=== PATIENT | female | born 1950 | race Caucasian/White ===

== ENCOUNTER 2019-07-03 12:31 | Day surgery (SDC) | payer OTHER ==
[~2019-07-03] VITALS: Ht 165.1 cm; Wt 159.1 kg
[~2019-07-03 12:31] MED LIST: (None)15 G1 EXT; ACET250 PO; ACET325 PO; ALBU3IS INH; ALBU90OI61 INH; ALLO300 PO; AMOX500 PO; ASCO500 PO; ASPI81CH PO; ASPI81EC PO; ATENOLOL PO; ATOR20 PO; Artificial Tea1 EACH BOTHEYES; Aspirin EC81 MG PO; Ativan1 MG PO; BISA10S PR; Bactrim Ds Tab1 EACH PO; CARI350 PO; CEPH500 PO; CHOL10002 PO; CLIN150 PO; CLON.5 PO; CVS DISPOSABLE399 ML PR; Cleocin HCl150 MG PO; DIAZ5 PO; DIVA500EC PO; DIVA500ER PO; DOC250 PO; DOCU100 PO; Esgic Tablet1 EACH PO; FERR325 PO; FLUC200 PO; FURO40 PO; FURO80; GABA300 PO; GABA600 PO; GAVILAX17 GM PO; HYDMETSO BOTHEYES; HYOS.125 SL; IBUP800 PO; INSU100I6 SC; Keppra1000 MG PO; LAVAP17G PO; LEVE500 PO; LEVFLO500 PO; LEVOTHROID PO; LEVOTHYROXINE PO; LEVSOD100 PO; LEVSOD25 PO; LEVSOD75 PO; LIDO5TP TOP; LIDO700A20 TOP; LIOT25 PO; LISI5; LISI5 PO; Lisinopril2.5 MG PO; METF500 PO; METF500C PO; METH10 PO; METH40 PO; MULVITMIND PO; NITR.4SL SL; NITR.6SL SL; NORCO 7.5/325 PO; NYST100P TOP; Neurontin600 MG PO; Norco 10-325 T1 EACH PO; OMEP20ER PO; ONDA4SO PO; OXYACE5T PO; OXYB5 PO; OXYB5ER PO; OXYC10ER PO; OXYC15ER; OXYC15ER PO; OXYC5 PO; Omeprazole20 M1 PO; PANT40 PO; POLY17UD PO; POTA10T PO; POTCHL10ER PO; POTCHL20ER PO; PROM25 PO; SACC250C PO; SIMV10 PO; SIMV40 PO; SPIR25 PO; SULTRIDS PO; Synthroid300 MCG PO; TETR.05OPS LEFTEYE; THYR60 PO; Vitamin B Comple1 EA PO; ZINC220 PO; [UNRECOGNIZED DRUG - OTHER] LEFTEYE
== END 2019-07-03 22:37 | disposition home or self-care (01) ==
LOC: MHTC 12:31
DX: I87.2 Venous insufficiency (chronic) (peripheral) (principal); Z88.0 Allergy status to penicillin; Z88.8 Allergy status to other drugs, medicaments and biological substances
CPT/HCPCS: 36475; 99152; 99153; C1769; C1888; C1894; J1644; J2250; J3010; J7040

== ENCOUNTER 2019-07-12 09:04 | Day surgery (SDC) | payer OTHER ==
[~2019-07-12] VITALS: Ht 170.2 cm; Wt 148.0 kg
--- NOTE | 2019-07-12 11:31 | NUR ---
RF CYCLES COMPLETED AT 120 DEGREES; 13 KAT - TOTAL TREATMENT TIME 2:00; 6 RF CYCLES.
--- NOTE | 2019-07-12 11:53 | NUR ---
PT TOLERATED VENOUS ABLATION/SCLEROTHERAPY WELL. RIGHT LEG WRAPPED WITH GAUZE, COBAN AND KNEE-HIGH 20-30 COMPRESSION STOCKINGS.
--- NOTE | 2019-07-12 12:14 | NUR ---
DISCHARGE INSTRUCTIONS REVIEWED ALL QUESTIONS ANSWERED. 22 G IV DISCONTINUED FROM RIGHT AC WITH INTACT CANNULA.
--- NOTE | 2019-07-12 12:32 | NUR ---
PT ESCORTED OUT VIA WHEELCHAIR.
== END 2019-07-12 23:24 | disposition home or self-care (01) ==
LOC: MHTC 09:04
DX: I87.2 Venous insufficiency (chronic) (peripheral) (principal); I83.91 Asymptomatic varicose veins of right lower extremity
CPT/HCPCS: 36465; 36475; C1888; C1894; J1644; J2250; J3010; J7030; J7040

== ENCOUNTER 2019-12-11 00:15 | Day surgery (SDC) | payer OTHER | END 2019-12-11 14:35 | disposition home or self-care (01) | LOC: ATC 00:15 | DX: N39.0 Urinary tract infection, site not specified (principal); I12.9 Hypertensive chronic kidney disease with stage 1 through stage 4 chronic kidney disease, or unspecified chronic kidney disease; E11.22 Type 2 diabetes mellitus with diabetic chronic kidney disease; N18.2 Chronic kidney disease, stage 2 (mild); D63.1 Anemia in chronic kidney disease; E11.21 Type 2 diabetes mellitus with diabetic nephropathy; Z79.899 Other long term (current) drug therapy; Z79.84 Long term (current) use of oral hypoglycemic drugs; Z79.82 Long term (current) use of aspirin; Z88.0 Allergy status to penicillin | CPT/HCPCS: 96365; J3370 ==

== ENCOUNTER 2021-11-09 12:56 | Day surgery (SDC) | payer OTHER ==
[~2021-11-09] VITALS: Ht 172.7 cm; Wt 170.0 kg
[~2021-11-09 12:56] MED LIST changes: -GAVILAX17 GM PO; -Keppra1000 MG PO; +POLYETHYLENE G500 G1 PO
--- NOTE | 2021-11-09 17:15 | NUR ---
[facility] A&O. comfortable in bed. left foot withdressing D&I. no hematoma, no bleeding
--- NOTE | 2021-11-09 18:42 | NUR ---
PATIENT DESSING WITH ASSISTANCE FROM FAMILY
--- NOTE | 2021-11-09 19:08 | NUR ---
PATIENT AND FAMILY VERBALIZED UNDERSTANDING OF DISCHARGE INSTRUCTIONS AND PRECAUTIONS. IV SITE DCED WITH CATHETER IN TACT. UGARTE CATHETER REMOVED WITH 200 CC OF DARK YELLOW URINE IN BAG. LEFT PEDAL SITE DRESSING D&I. NO HEMATOMA, NO BLEEDING. PATIENT TRANSFERRED TO [facility] WITH ASSIST FROM FAMILY AND BELLA RT. NO FURTHER QUESTIONS. PATIENT TRANSFERRED VIA HER WHEEL CHAIR TO WAITING VAN. CPAP TAKEN BY PATIENT.
== END 2021-11-09 19:08 | disposition home or self-care (01) ==
LOC: MHTC 12:56
DX: E11.51 Type 2 diabetes mellitus with diabetic peripheral angiopathy without gangrene (principal); I70.212 Atherosclerosis of native arteries of extremities with intermittent claudication, left leg; E11.42 Type 2 diabetes mellitus with diabetic polyneuropathy; E78.5 Hyperlipidemia, unspecified; E03.9 Hypothyroidism, unspecified; K21.9 Gastro-esophageal reflux disease without esophagitis; Z88.0 Allergy status to penicillin
CPT/HCPCS: 76937; 99152; 99153; C1769; C1887; C1894; J1644; J2250; J3010; J7030; J7050; Q9967

== ENCOUNTER 2022-12-18 02:33 | Emergency (ER) | payer OTHER ==
[~2022-12-18] VITALS: Ht 170.2 cm; Wt 136.1 kg
== END 2022-12-18 04:52 | disposition home or self-care (01) ==
LOC: ER 02:33
DX: T25.222A Burn of second degree of left foot, initial encounter (principal); T31.0 Burns involving less than 10% of body surface; X12.XXXA Contact with other hot fluids, initial encounter; E11.9 Type 2 diabetes mellitus without complications; I10 Essential (primary) hypertension; J45.909 Unspecified asthma, uncomplicated; E66.9 Obesity, unspecified; Z23 Encounter for immunization; Z88.0 Allergy status to penicillin; Z88.2 Allergy status to sulfonamides; Z88.8 Allergy status to other drugs, medicaments and biological substances; Z79.899 Other long term (current) drug therapy; Z79.82 Long term (current) use of aspirin; Z79.84 Long term (current) use of oral hypoglycemic drugs
CPT/HCPCS: 90714; A9270; J1170; J1885

== ENCOUNTER → 2022-12-20 | Outpatient (CLI) | payer OTHER ==
[2022-12-20 18:55] LABS: U Amphetamine Screen Not Detected; U Barbituate Screen Not Detected; U Benzodiazapine Screen Not Detected; U Buprenorphine Screen Not Detected; U Cannabinoids Screen Not Detected; U Cocaine Screen Not Detected; U Methadone Screen DETECTED; U Methamphetamine Screen Not Detected; U Opiates Screen DETECTED; U Oxycodone Screen Not Detected; U Phencyclidine Screen Not Detected; U Propoxyphene Screen Not Detected
== END | disposition home or self-care (01) ==
LOC: LAB SHORT 16:37 → LAB 16:37
PROVIDERS: Internal Medicine Hematology & Oncology
DX: Z51.81 Encounter for therapeutic drug level monitoring (principal); Z79.899 Other long term (current) drug therapy

== ENCOUNTER → 2022-12-29 | Outpatient (CLI) | payer OTHER ==
[2022-12-29 15:30] LABS: Source, Urine Clean Catch
[2022-12-29 17:26] LABS: Appearance, Urine Cloudy (Clear); Bilirubin, Urine Neg (Neg); Blood, Urine Neg (Neg); Color, Urine Yellow (P-Yellow); Glucose Qualitative, Urine Neg (Neg); Ketones, Urine Neg (Neg); Leukocyte Esterase, Urine 1+ (Neg); Nitrite, Urine Neg (Neg); Protein, Urine 1+ (Neg); Urobilinogen, Urine NORM (Normal)
[2022-12-29 18:06] LABS: Bacteria Many /hpf; Calcium Oxalate Crystals Mod /hpf; Squamous Epithelial Cells Few /hpf (Few); Uric Acid Crystals Many /hpf
[2022-12-29 18:07] LABS: Hyaline Casts 0-2 /lpf (0-2)
== END | disposition home or self-care (01) ==
LOC: LAB SHORT 15:29 → LAB 15:29
PROVIDERS: Internal Medicine Hematology & Oncology
DX: N39.0 Urinary tract infection, site not specified (principal)
CPT/HCPCS: 81001; 87086

== ENCOUNTER → 2023-09-23 | Outpatient (CLI) | payer OTHER ==
[2023-09-23 18:57] LABS: Creatinine Urine 62.2 mg/dL (27.00-270.00); Microalbumin, Urine Quant. 9.71 mg/L (0.000-20.000); Protein, Urine Quantitative 10.4 mg/dL (0.0-11.9)
== END | disposition home or self-care (01) ==
LOC: LAB SHORT 10:00 → LAB 10:00 → LAB FUT 05-19 16:50
PROVIDERS: Internal Medicine Nephrology
DX: E11.40 Type 2 diabetes mellitus with diabetic neuropathy, unspecified (principal); E03.9 Hypothyroidism, unspecified; N30.00 Acute cystitis without hematuria; E11.22 Type 2 diabetes mellitus with diabetic chronic kidney disease; N18.30 Chronic kidney disease, stage 3 unspecified; D63.1 Anemia in chronic kidney disease; N25.81 Secondary hyperparathyroidism of renal origin; E55.9 Vitamin D deficiency, unspecified; E78.00 Pure hypercholesterolemia, unspecified; R76.9 Abnormal immunological finding in serum, unspecified; R94.6 Abnormal results of thyroid function studies
CPT/HCPCS: 81050; 82043; 82570; 84156

== ENCOUNTER 2024-04-03 12:19 | Day surgery (SDC) | payer OTHER ==
[~2024-04-03] VITALS: Ht 172.7 cm; Wt 150.0 kg
[~2024-04-03 12:19] MED LIST changes: +Balanced Salt Epinephrine Irrigation Solution 500 mL IR SCH; +Lidocaine HCl/Pf 1% 5 ML VIAL XX SCH; +Moxifloxacin HCL 0.5 MG/0.1 ML 0.4MLSYR RIGHTEYE SCH; +NS 500 ML IV ONE; +PHENYLEPHRINE\\TROPICAMIDE\\TETRACAINE OPHTHALMIC DILATING SOLN RIGHTEYE PRN; +Povidone-Iodine 450 DROP/30 ML Solution RIGHTEYE SCH
[2024-04-03] MEDS ORDERED: FentaNYL Citrate 50 MCG/ML 2 ML Injection ONE (12:35)
[2024-04-03] MEDS ORDERED: Midazolam HCl 1MG / ML 2ML Vial ONE (12:35)
[2024-04-03] MEDS ORDERED: TAMS.4ER (12:50)
[2024-04-03] MEDS ORDERED: ROPI.25 (12:50)
[2024-04-03] MEDS ORDERED: PANT20 (12:51)
[2024-04-03] MEDS ORDERED: NS 1,000 ML IV ONE (13:29)
--- NOTE | 2024-04-03 13:51 | NUR ---
04/03/24 1351 Kate Sheets ON EYE BED, RAILS UP. PILLOW UNDER KNEES. TOWEL ROLL PLACED UNDER RIGHT ELBOW.
[2024-04-03 14:16] VITALS: BP 126/66
== END 2024-04-03 14:40 | disposition home or self-care (01) ==
LOC: ORSCSDS 12:19
PROVIDERS: Student in an Organized Health Care Education/Training Program
PROC: 08RJ3JZ Replacement of Right Lens with Synthetic Substitute, Percutaneous Approach (ICD-10-PCS; principal; 2024-04-03 13:45)
DX: E11.36 Type 2 diabetes mellitus with diabetic cataract (principal); H25.813 Combined forms of age-related cataract, bilateral; E11.42 Type 2 diabetes mellitus with diabetic polyneuropathy; I10 Essential (primary) hypertension; Z86.718 Personal history of other venous thrombosis and embolism; E78.5 Hyperlipidemia, unspecified; E03.9 Hypothyroidism, unspecified; J45.909 Unspecified asthma, uncomplicated; M32.9 Systemic lupus erythematosus, unspecified; G40.909 Epilepsy, unspecified, not intractable, without status epilepticus; G47.33 Obstructive sleep apnea (adult) (pediatric); E66.01 Morbid (severe) obesity due to excess calories; Z68.43 Body mass index [BMI] 50.0-59.9, adult; Z99.3 Dependence on wheelchair; Z79.84 Long term (current) use of oral hypoglycemic drugs; Z79.899 Other long term (current) drug therapy
CPT/HCPCS: 82947; J2250; J3010; J7040; V2632

== ENCOUNTER 2024-04-17 12:26 | Day surgery (SDC) | payer OTHER ==
[~2024-04-17] VITALS: Ht 170.2 cm; Wt 150.0 kg
[~2024-04-17 12:26] MED LIST changes: +Moxifloxacin HCL 0.5 MG/0.1 ML 0.4MLSYR LEFTEYE SCH; -Moxifloxacin HCL 0.5 MG/0.1 ML 0.4MLSYR RIGHTEYE SCH; +PANT20; +PHENYLEPHRINE\\TROPICAMIDE\\TETRACAINE OPHTHALMIC DILATING SOLN LEFTEYE PRN; -PHENYLEPHRINE\\TROPICAMIDE\\TETRACAINE OPHTHALMIC DILATING SOLN RIGHTEYE PRN; +Povidone-Iodine 450 DROP/30 ML Solution LEFTEYE SCH; -Povidone-Iodine 450 DROP/30 ML Solution RIGHTEYE SCH; +ROPI.25; +TAMS.4ER
[2024-04-17] MEDS ORDERED: Midazolam HCl 1MG / ML 2ML Vial ONE (13:28)
[2024-04-17] MEDS ORDERED: FentaNYL Citrate 50 MCG/ML 2 ML Injection ONE (13:28)
[2024-04-17] MEDS ORDERED: NS 1,000 ML IV ONE (13:33)
[2024-04-17] MEDS ORDERED: Lactated Ringer's 1,000 ML IV ONE (13:38)
[2024-04-17] MEDS ORDERED: Acetaminophen 500 MG Tab ONE (14:15)
[2024-04-17 14:47] VITALS: BP 121/52
--- NOTE | 2024-04-17 14:50 | NUR ---
04/17/24 1450 Ricardo Perry PT REPORTED 7/10 PAIN UPON D/C. SHE STATED THAT THIS IS A TOLERABLE LEVEL OF PAIN TO RETURN HOME WITH WHILE WAITING FOR TYLENOL TO TAKE EFFECT. SHE WAS INSTRUCTED TO CONTACT DR. PARKER IMMEDIATELY IF PAIN IS NOT RELIEVED BY OTC MEDICATION.
== END 2024-04-17 14:31 | disposition home or self-care (01) ==
LOC: ORSCSDS 12:26
PROVIDERS: Student in an Organized Health Care Education/Training Program
PROC: 08RK3JZ Replacement of Left Lens with Synthetic Substitute, Percutaneous Approach (ICD-10-PCS; principal; 2024-04-17 13:45)
DX: E11.36 Type 2 diabetes mellitus with diabetic cataract (principal); H25.812 Combined forms of age-related cataract, left eye; Z96.1 Presence of intraocular lens; K21.9 Gastro-esophageal reflux disease without esophagitis; G47.33 Obstructive sleep apnea (adult) (pediatric); E03.9 Hypothyroidism, unspecified; M32.9 Systemic lupus erythematosus, unspecified; I10 Essential (primary) hypertension; E78.5 Hyperlipidemia, unspecified; G40.909 Epilepsy, unspecified, not intractable, without status epilepticus; Z86.718 Personal history of other venous thrombosis and embolism; J45.909 Unspecified asthma, uncomplicated; E66.01 Morbid (severe) obesity due to excess calories; Z68.43 Body mass index [BMI] 50.0-59.9, adult; Z79.84 Long term (current) use of oral hypoglycemic drugs; Z79.899 Other long term (current) drug therapy
CPT/HCPCS: 82947; A9270; J2250; J3010; J7040; V2632

== ENCOUNTER → 2024-08-20 | Outpatient (CLI) | payer OTHER ==
[~2024-08-20] MED LIST changes: -Balanced Salt Epinephrine Irrigation Solution 500 mL IR SCH; -Lidocaine HCl/Pf 1% 5 ML VIAL XX SCH; -Moxifloxacin HCL 0.5 MG/0.1 ML 0.4MLSYR LEFTEYE SCH; -NS 500 ML IV ONE; -PHENYLEPHRINE\\TROPICAMIDE\\TETRACAINE OPHTHALMIC DILATING SOLN LEFTEYE PRN; -Povidone-Iodine 450 DROP/30 ML Solution LEFTEYE SCH
== END | disposition home or self-care (01) ==
LOC: LAB 16:37 → LAB SHORT 16:37
DX: N39.0 Urinary tract infection, site not specified (principal)
CPT/HCPCS: 87086

== ENCOUNTER → 2024-11-14 | Outpatient (CLI) | payer OTHER | LOC: LAB SHORT 15:58 → LAB 15:58 | DX: N39.0 Urinary tract infection, site not specified (principal) | CPT/HCPCS: 87077; 87086; 87186 ==

== ENCOUNTER → 2025-01-08 | Outpatient (CLI) | payer OTHER | LOC: LAB SHORT 13:28 → LAB 13:28 | DX: N39.0 Urinary tract infection, site not specified (principal) | CPT/HCPCS: 87077; 87086; 87186 ==

== ENCOUNTER 2025-03-31 18:41 | Inpatient (IN) | payer OTHER ==
[~2025-03-31] VITALS: Ht 167.6 cm; Wt 143.1 kg
[2025-03-31] MEDS ORDERED: NS 1,000 ML IV SCH ×2 (18:50→22:45)
[2025-03-31] MEDS ORDERED: NS 1,000 ML IV ONE (18:59)
[2025-03-31 19:09] LABS: BASOPHILS ABSOLUTE AUTO 0.03 K/mm3 (0.00-0.23); BASOPHILS PERCENT AUTO 0 % (0-2); EOSINOPHILS ABSOLUTE AUTO 0.04 K/mm3 (0.00-0.68); EOSINOPHILS PERCENT AUTO 0 % (0-6); Hematocrit 33.8 % (33.0-51.0); Hemoglobin 10.8 g/dL (11.5-16.0); IMMATURE GRAN ABSOLUTE AUTO 0.04 K/mm3 (0.00-0.10); IMMATURE GRAN PERCENT AUTO 0 % (0-1); LYMPHOCYTES ABSOLUTE AUTO 0.40 K/mm3 (0.84-5.20); LYMPHOCYTES PERCENT AUTO 4 % (21-46); MONOCYTES ABSOLUTE AUTO 0.47 K/mm3 (0.16-1.47); MONOCYTES PERCENT AUTO 5 % (4-13); Mean Corpuscular HGB Conc 32.0 g/dL (31.5-36.5); Mean Corpuscular Volume 95 fL (80-100); NEUTROPHILS ABSOLUTE AUTO 9.13 K/mm3 (1.96-9.15); NEUTROPHILS PERCENT AUTO 90 % (41-73); NRBC ABSOLUTE 0.00 K/mm3 (0.00-0.02); NRBC Auto 0.0 /100 WBC (0.0-0.2); Platelet Count 173 K/mm3 (150-400); RDW Coefficient Variation 14.4 % (11.7-14.2); RDW Standard Deviation 50.4 fL (35.1-46.3)
[2025-03-31 19:27] LABS: Alanine Aminotransfer (ALT/SGP 14 U/L (12-78); Albumin, Blood 2.7 g/dL (3.4-5.0); Albumin/Globulin Ratio 0.8 (0.8-1.8); Anion Gap 4 mmol/L (3-11); Aspartate Aminotrans (AST/SGOT 27 U/L (12-37); Bilirubin, Total 0.4 mg/dL (0.1-1.0); Blood Urea Nitrogen 9 mg/dL (8-24); CO2, Blood 32 mmol/L (21-32); Calcium, Blood 8.5 mg/dL (8.5-10.1); Chloride, Blood 107 mmol/L (98-108); Creatinine, Blood 0.61 mg/dL (0.40-1.00); Globulin, Blood 3.4 g/dL (2.2-4.0); Glucose, Blood 133 mg/dL (70-99); Potassium, Blood 4.0 mmol/L (3.5-5.5); Sodium, Blood 139 mmol/L (136-145); Total Protein, Blood 6.1 g/dL (6.4-8.2)
[2025-03-31 19:53] LABS: Source, Urine Straight Cath
[2025-03-31 19:56] LABS: Bilirubin, Urine Neg (Neg); Glucose Qualitative, Urine Neg (Neg); Ketones, Urine Neg (Neg); Leukocyte Esterase, Urine 1+ (Neg); Protein, Urine 1+ (Neg); Specific Gravity, Urine 1.020 (1.003-1.022); Urobilinogen, Urine NORM (Normal)
[2025-03-31 20:03] LABS: Color, Urine Pale Yellow (P-Yellow)
[2025-03-31 20:04] LABS: Red Blood Cells, Urine 0-2 /hpf (0-2)
[2025-03-31] MEDS ORDERED: CefTRIAXone Sodium 2,000 MG in NS 100 ML IV ONE (20:10)
[2025-03-31 21:54] LABS: Thyroid Stimulating Hormone <0.005 uIU/mL (0.360-4.800)
[2025-03-31] MEDS ORDERED: Ondansetron HCl 2 MG / ML 2ML Vial IV PRN (22:40)
[2025-04-01] VITALS (31 sets, daily range): BP systolic 101–148; BP diastolic 43–110
--- NOTE | 2025-04-01 02:38 | NUR ---
TRANSFER OF CARE LATE ENTRY: Pt arrived to the unit approx 0040. Norepi @ 6mcg. Pt on 3L NC. Oriented to room 12. No acute distress noted. Somnolent. Arousable but unable to stay awake to answer questions. VSS stable. Placed call light within reach of patient. at bedside able to answer some history questions but states their daughter and the patient's caregiver can answer history questions more accurately. Personal lift sheet given back to spouse to take home. Educated on visiting hours and plan of care moving forward. Patient and family had no further questions.
[2025-04-01 04:19] LABS: BASOPHILS ABSOLUTE AUTO 0.02 K/mm3 (0.00-0.23); BASOPHILS PERCENT AUTO 0 % (0-2); EOSINOPHILS ABSOLUTE AUTO 0.03 K/mm3 (0.00-0.68); EOSINOPHILS PERCENT AUTO 0 % (0-6); Hematocrit 32.7 % (33.0-51.0); Hemoglobin 10.2 g/dL (11.5-16.0); IMMATURE GRAN ABSOLUTE AUTO 0.03 K/mm3 (0.00-0.10); IMMATURE GRAN PERCENT AUTO 0 % (0-1); LYMPHOCYTES ABSOLUTE AUTO 0.68 K/mm3 (0.84-5.20); LYMPHOCYTES PERCENT AUTO 7 % (21-46); MONOCYTES ABSOLUTE AUTO 0.39 K/mm3 (0.16-1.47); MONOCYTES PERCENT AUTO 4 % (4-13); Mean Corpuscular HGB Conc 31.2 g/dL (31.5-36.5); Mean Corpuscular Volume 96 fL (80-100); NEUTROPHILS ABSOLUTE AUTO 8.15 K/mm3 (1.96-9.15); NEUTROPHILS PERCENT AUTO 88 % (41-73); NRBC ABSOLUTE 0.00 K/mm3 (0.00-0.02); NRBC Auto 0.0 /100 WBC (0.0-0.2); Platelet Count 174 K/mm3 (150-400); RDW Coefficient Variation 14.5 % (11.7-14.2); RDW Standard Deviation 51.3 fL (35.1-46.3)
[2025-04-01 04:46] LABS: Alanine Aminotransfer (ALT/SGP 13.0 U/L (12-78); Albumin, Blood 2.4 g/dL (3.4-5.0); Albumin/Globulin Ratio 0.7 (0.8-1.8); Anion Gap 4.0 mmol/L (3-11); Aspartate Aminotrans (AST/SGOT 29.0 U/L (12-37); Bilirubin, Total 0.4 mg/dL (0.1-1.0); Blood Urea Nitrogen 9.0 mg/dL (8-24); CO2, Blood 32.0 mmol/L (21-32); Calcium, Blood 8.4 mg/dL (8.5-10.1); Chloride, Blood 108.0 mmol/L (98-108); Creatinine, Blood 0.62 mg/dL (0.40-1.00); Globulin, Blood 3.4 g/dL (2.2-4.0); Glucose, Blood 102.0 mg/dL (70-99); Magnesium, Blood 1.8 mg/dL (1.6-2.4); Potassium, Blood 4.0 mmol/L (3.5-5.5); Sodium, Blood 140.0 mmol/L (136-145); Total Protein, Blood 5.8 g/dL (6.4-8.2)
[2025-04-01] MEDS ORDERED: Levothyroxine Sodium 0.15 MG Tab PO SCH (06:00)
[2025-04-01] MEDS ORDERED: Pantoprazole Sodium 40 MG Injection IV SCH (06:00)
[2025-04-01] MEDS ORDERED: Lactobacil 2-S.Thermo-Bifido 1 1 Cap PO SCH (09:00)
[2025-04-01] MEDS ORDERED: Enoxaparin 40 MG/0.4 ML SYR SC SCH (09:00)
--- NOTE | 2025-04-01 18:03 | NUR ---
SHIFT SUMMARY PT A/O X3, PMH DEMENTIA WITH IMPAIRED MEMORY RECALL. AFEBRILE TMAX 99.2. NSR, BP SOFT TO WNL. REGULAR DIET - EASY TO CHEW. BGS WNL. NO BM. PUREWICK INTACT. LINEN/GOWN CHANGED SEVERAL TIMES. PT UP TO CHAIR FOR SEVERAL HOURS - WORKED WITH PT. SKIN ASSESSMENT UPDATED - ERYTHEMATOUS, FIRM, HOT AREA TO LEFT LATERAL THIGH. DAUGHTER REPORTS PMH CELLULITIS - DR. ADDISON EVALUATED AT BEDSIDE. PIV X3. NS 125 ML/HR STOP AFTER BAG COMPLETE PER DR. ADDISON. ECHO ORDERED THIS MORNING BUT NOT YET COMPLETED.
[2025-04-01] MEDS ORDERED: CefTRIAXone Sodium 1,000 MG in NS 100 ML IV SCH (21:00)
[2025-04-01] MEDS ORDERED: Insulin Human Lispro 100 Units/ML 3ML Syringe SC SCH ×2 (21:00)
[2025-04-02] VITALS (7 sets, daily range): BP systolic 99–138; BP diastolic 47–88
--- NOTE | 2025-04-02 01:00 | NUR ---
PT AT BEDSIDE, STATED MEDICATIONS INCORRECT, METHADONE SPECIFICALLY. WENT OVER MEDS WITH PT . MD NOTIFIED OF INCORRECT MEDADONE DOSE, ORDER TO GIVE PT HOME DOSE METHADONE. MD NOTIFIED OF CONFUSION AND PT INCREASINGLY PULLING AT LINES/TUBES, ORDER TO GIVE CLONAZEPAM 1MG PO NOW. PT MAKING MULTIPLE ATTEMPTS TO REMOVE PIV'S/LINES, PT PLACED IN CAROLEE MITTS PER ORDER. GIVEN 50MG SEROQUEL AND 5MG MELATONIN PO PER ORDERS. PT CONTINUES TO TRY AND REMOVE LINES, PT THEN PLACED IN CAROLEE WRIST RESTRAINTS PER MD ORDERS. PT DOWNGRADED TO MEDICAL STATUS.
--- NOTE | 2025-04-02 01:09 | NUR ---
REPORT RECEIVED FROM PAPER INSERTER AND AWAITING PT T/F VIA BARIATRIC BED TO ROOM 359.
[2025-04-02] MEDS ORDERED: HYDROcodone 10-APAP 325 TAB PO ONE (02:45)
--- NOTE | 2025-04-02 03:16 | NUR ---
ALERTED TO INCREASED AGGITATION UPON T/F TO ROOM W/O ABILITY TO CALM, DISTRACT OR EDUCATE PT. SHE'S BEEN CONSTANTLY PULLING ON RESTRAINTS, BECAME MILDLY COMBATIVE (SWINGING AT STAFF), HAS BEEN SLIDING DOWN IN BED TO ATTEMPT TO REMOVE RESTRAINTS AND NO ATTEMPTS AT DISTRACTION OR REDIRECTION HAVE BEEN HELPFUL. PT REPORTED BACK PAIN AND X1 NORCO WAS RX'D BUT PT REFUSED TO TAKE ANY PO MEDS. UPDATED AND BENEDRYL 5OMG IV NOW RX'D. WILL ADMINISTER MED AND REEVALUATE.
[2025-04-02] MEDS ORDERED: DiphenhydrAMINE HCl 50 MG/ML 1ML Vial IV ONE (03:20)
--- NOTE | 2025-04-02 04:44 | NUR ---
SUMMARY: PT CONT'S TO BE CONFUSED, ORIENTED TO SELF ONLY AND ANXIOUS WHEN AWAKE. SOFT WRIST RESTRAINTS REMAIN INTACT FOR IMPULSIVITY, FREQ ATTEMPTS OOB BY SELF, FALL RISK, PULLING AT LINES, CONFUSION AND BECOMING MILDLY COMBATIVE WHEN STAFF ATTEMPT TO REDIRECT. SHE REFUSED PO MEDS DESPITE RN ATTEMPTING TO PROVIDE PRN NORCO FOR PT REPORT OF BACK PAIN AND SHE'S BEEN VERY RESISTANT TO REPOSITIONING. IV BENEDRYL WAS RX'D AND RECEIVED FOR CALMING AFFECT AND PT HAS BEEN SLEEPING MORE COMFORTABLY W/O S/S DISTRESS SINCE. PUREWICK IS IN PLACE FOR INCONTINENCE, BEDREST STATUS AND INABILITY TO FOLLOW INSTRUCTIONS AT PRESENT. SHE'S NSR ON TELE AT 70'S BPM AND REMAINS ON 2L O2 VIA NC. L.LATERAL THIGH REMAINS HOT/FIRM AND INTENSIVISTS BELIEVES IT TO BE CELLULITIS. IV ABX RECEIVED IN ICU PRIOR TO T/F. NO ACUTE CHANGES, VSS/AFEBRILE. WILL REPORT TO DAY RN.
--- NOTE | 2025-04-02 14:06 | NUR ---
PT HAD [address]LE[address] GUTIERREZ NOTIFIED, EKG ORDERED AND COMPLETED. DR. GUTIERREZ CALLED AND NOTIFIED OF EKG RESULTS AND WERE PLACED ON FRONT OF CHART. PT CONTINUES TO ITCH TO PLACES WITH TAPE LIKE AROUND IV, DR. GUTIERREZ NOTIFIED TO REVIEW CHART AND POSSIBLY ADD SOMETHING TO HELP.
--- NOTE | 2025-04-02 17:10 | NUR ---
SUMMARY MOVED TO LIFT ROOM 331 REPORT GIVEN TO LAWRENCE WISE GATHERED AND SENT TO NEW ROOM. PT TRANSPORTED IN HER BARIATRIC BED. DR. GUTIERREZ TO CONSULT WITH NEUROLOGY TODAY AT [facility] ABOUT POTENTIAL CHANGE TO HER SEIZURE MEDS. NO NEW CHANGES TO MED REGIMEN AT THIS TIME. NO WITNESSED SEIZURE ACTIVITY. ABEL WAS AT BEDSDIE ALL MORNING. PT WAS REMOVED FROM NON VIOLENT WRIST RESTRAINTS AT 0900. ORDER DC'D. PT STILL HAS GOOD IV ACCESS TO LEFT AC. PT COMPLAINS TO ITCHING TO SITE, WITH SOME ASSOCIATED REDNESS FROM WHERE SHE HAS BEEN SCRATCHING. LORATIDINE STARTED FOR ITCHING TODAY PER DR. IZQUIERDO. PT TOTAL CARE. 2 PERSON TO REPOSITION/CHAGNE. DOES NOT CALL APPROPRIATELY. PUREWICK IN PLACE AND NEEDED TO BE REPLACED TODAY DUE TO LEAKING.
[2025-04-03 00:33] VITALS: BP 124/57
--- NOTE | 2025-04-03 04:25 | NUR ---
SHIFT SUMMARY WHILE ASSUMING CARE OF THIS PATIENT, THIS RN NOTED THAT THE L FOOT WAS MUCH COOLER THAN THE RIGHT AND PULSE WAS ONLY PALPABLE WITH DOPPLER. THIS RN CALLED CRICKET COLIN AT APPROX 1930, WHOM STATED THAT HE WOULD COME TO THE PATIENT'S ROOM TO ASSESS THE PATIENT. DR NOVAK AT BEDSIDE AT APPROX 1950, WHOM STATED THAT HE WOULD ORDER VENOUS AND ARTERIAL ULTRASOUND. AT APPROX 2300, PATIENT AWOKE CONFUSED AND STARTED PULLING AT LINES, BREAK SHIFT RN CALLED MD AND AN ORDER FOR ONE TIME SEROQUEL WAS ORDERED. PATIENT SPOUSE AT BEDSIDE. PT FELL ASLEEP SHORTLY AFTERWARDS, SO THE MEDICATION WAS HELD AT THIS TIME. PUREWICK IN PLACE, DRAINING WELL TO SUCTION. REPOSITIONED Q2H WITH PRESCHOOL DISABILITY TEACHER ASSISTANCE, PT REMAINS HEAVY TWO PERSON WITH ALL CARE. NO ACUTE CHANGES THROUGHOUT THE SHIFT. CALL LIGHT IN REACH AND BED IN LOWEST POSITION. WILL REPORT TO CORRINE FLETCHER.
[2025-04-03 05:04] VITALS: BP 122/59
[2025-04-03 06:51] LABS: Anion Gap 6.0 mmol/L (3-11); Blood Urea Nitrogen 12.0 mg/dL (8-24); CO2, Blood 32.0 mmol/L (21-32); Calcium, Blood 8.6 mg/dL (8.5-10.1); Chloride, Blood 105.0 mmol/L (98-108); Creatinine, Blood 0.57 mg/dL (0.40-1.00); Glucose, Blood 74.0 mg/dL (70-99); Potassium, Blood 3.8 mmol/L (3.5-5.5); Sodium, Blood 139.0 mmol/L (136-145)
[2025-04-03 07:10] VITALS: BP 117/54
[2025-04-03] MEDS ORDERED: diphenhydrAMINE HCl 12.5 MG/5 ML 5MLUDC (Alcohol/Dye Free) PO ONE (15:35)
[2025-04-03 16:40] VITALS: BP 119/55
[2025-04-03] MEDS ORDERED: LORazepam 2 MG/ML 1ML Injection IV ONE (18:55)
[2025-04-03] MEDS ORDERED: LORazepam 2 MG/ML 1ML Injection IV PRN (18:55)
[2025-04-03] MEDS ORDERED: Diazepam 5 MG / ML 2ML SYR IV PRN (19:05)
[2025-04-03] MEDS ORDERED: Diazepam 5 MG / ML 2ML SYR IV ONE (19:05)
[2025-04-03 19:28] VITALS: BP 114/55
--- NOTE | 2025-04-03 20:15 | NUR ---
SHIFT SUMMARY- AT 1630 THE PT STARTED TO BECOME INCREASINGLY CONFUSED. SHE WAS REDIRECTABLE. HER DTR WAS PRESENT AT THE BEDSIDE 1:1 TO REDIRECT HER NEEDED. AT 1700 THE PT BECAME VERBALLY ABUSSIVE TOWARDS HER DTR (WHO WAS NOW CRYING) REFINERY OPERATOR COKING OFFERED TO TEND TO THE PT AND SUGESTED THAT THE DTR TAKE A BREAK. THE PT BECAME ANGRY ATY THE REFINERY OPERATOR COKING FOR "KICKING" HER DTR OUT. REFINERY OPERATOR COKING ASSISTED THE PT UP TO A CHAIR FOR DINNER VIA THE LIFT WITHG RN ASSISTANCE. AT 1730 THE PT BECAME ANGRY WITH STAFF AGAIN. SHE STATED THE STAFF WERE BEING MEAN TO HER, AND WOULD NOT LET HER GET UP (THE PT WAS SEEN BY THERAPY AND CAN NOT STAND). STAFF TRANSFERED HER BACK TO BED VIA THE LIFT. PT BECAME AGITATED BECAUSE SHE WANTED TO WALK TO THE BATHROOM. WHEN STAFF EXPLAINED HER KNEES WOULD BUCKLE SHE KICKED A TABLE AT THE REFINERY OPERATOR COKING THAT SUGESTED IT. CALLED SECURITY FOR A STANDBY TO HELP DEESCALATE THE PT. CALLED DR IZQUIERDO AND RECIEVED ORDER FOR PO ZYPREXA. AFTER TALKINBG WITH SECURITY AND THE CRIMINAL JUSTICE FACULTY BRENNA THE PT WAS MORE CALM AND WILLING TO TAKE PO PRN MED. PT SPOUSE ARRIVED AND WAS AT THE BEDSIDE HE CAME TO GET STAFF THE PT WAS GETTING OOB UNSAFELY. PT WAS SITTING ON THE SIDE RAIL THAT WAS BOWING GREATLY AND COULD BREAK AT ANY MOMENT. CALLED FOR LIFT ASSISTANCE. 7 STAFF MEMBERS ASSISTED THE PT BACK TO BED SAFELY. CALLED DR IZQUIERDO AND RECIEVED IV LORAZEPAM ORDER NOW. PLACED THE ORDER. CALLED PHARMACY, WE HAVE NO IV ATIVAN AT THIS TIME. PLACED THE PT IN BILATERAL SOFT WRIST RESTRAINTS. CALLED DR IZQUIERDO AND RECIEVED A NEW ORDER FOR THE RESTRAING AND 5MG IV DIAZEPAM, WITH A REPEAT DOSE IN 1 HOUR IF THE FIRST DOSE WAS INEFFECTIVE. BEDSIDE REPORT COMPLETED WITH NIGHTR RN. PT INFORMED OF THE NEW ORDER, SHE AND HER SPOUSE STATE SHE HAS HAD THAT MED BEFORE. PT IN BED IN RESTRAINTS, SPOUSE AT THE BEDSIDE AT THE TIME OF BEDSIDE REPORT.
--- NOTE | 2025-04-03 21:56 | NUR ---
PT in a calm state and having a pleasent conversation with this LN. no aggitaion noted. spoke with charge nurse and soft restraints removed at 2145 after PT was able to state understanding of expections. was at bedside.
--- NOTE | 2025-04-03 22:44 | NUR ---
soft restains re applied when informed this LN that PT was attempting to get out of bed. time of reapplication 2234. stated he was able to redirect and get her back into a safe position.
[2025-04-04 00:05] VITALS: BP 130/111
[2025-04-04 04:30] VITALS: BP 143/73
--- NOTE | 2025-04-04 05:30 | NUR ---
SHIFT SUMMARY: Pt is admitted for hypotension and is a full code. Is alert and able to make needs known. ADLs have been 2p but did not get out of bed. Pain has been managed with routine medications. Iv to right wrist patent and running NS at 100ml/hr. Telly noted sinus in the 90s. Has been in soft restraints through most of shift. Attempted a trial with out. After about 45 min out of restraints was re applied due to unsafe decision making by trying to get out of bed. She has been bed ridden for a long time and not able to stand. She has had varying levels of confusion through shift. Was reported by break nurse that she was able to free herself by one wrist and was pulling at every line and wire she could reach. Pure wick in place and draining clear mee urine.
[2025-04-04 07:15] VITALS: BP 118/55
[2025-04-04 07:58] LABS: Albumin, Blood 2.1 g/dL (3.4-5.0); Anion Gap 5 mmol/L (3-11); Blood Urea Nitrogen 8 mg/dL (8-24); CO2, Blood 32 mmol/L (21-32); Calcium, Blood 8.7 mg/dL (8.5-10.1); Chloride, Blood 107 mmol/L (98-108); Creatinine, Blood 0.55 mg/dL (0.40-1.00); Glucose, Blood 83 mg/dL (70-99); Phosphorus, Blood 4.0 mg/dL (2.5-4.9); Potassium, Blood 3.6 mmol/L (3.5-5.5); Sodium, Blood 140 mmol/L (136-145)
[2025-04-04] MEDS ORDERED: Diazepam 5 MG / ML 2ML SYR IV ONE (16:00)
[2025-04-04] MEDS ORDERED: Diazepam 5 MG / ML 2ML SYR IV PRN (16:00)
--- NOTE | 2025-04-04 17:51 | NUR ---
TRANSFER NOTE PT TRANSFERRED FROM ROOM 331, REPORT RECEIVED FROM CHANCE JARRETT.
--- NOTE | 2025-04-04 20:05 | NUR ---
SHIFT SUMMARY- PT ALERT AND ORIENTED TO SELF AND FAMILY. SHE WAS TRANSFERED TO THE BACK [facility] FOR HER HIGH FALL RISK STATUS. THE PT IS HAVING HALLUCINATIONS AND SHE WILL GO FROM TALKING ABOUT SOMETHING MEANINGFULL AND ORIENTED TO A COMPLETELY OFF THE WALL SUBJECT. THEN SHE WILL TRY TO GET OOB TO GO DO WHATEVER THE SUBJECT WAS. SHE SEEMS TO HAVE NO RECOLECTION THAT SHE CAN NOT WALK OR SUPPORT HER OWN WEIGHT. WHEN STAFF TRY TO PREVENT HER FROM FALLING ON THE FLOOR SHE BECOMES ANGRY AND COMBATIVE. SHE HAS IV VALIUM AVAILABLE Q4, IT SEEMS TO WORK WELL WHEN THE PT IS LESS AGITATED TO START WITH. CALLED DR IZQUIERDO FOR THE VALIUM ORDER AND HE RENEWED THE RESTRAINT ORDER FOR PT SAFETY. PT TRANSFERED TO ROOM 350, CALLED HER DAUGHTER AND SPOKE TO HER, SHE IS AWARE OF THE TRANSFER.
[2025-04-04 20:38] VITALS: BP 130/69
[2025-04-04 23:55] VITALS: BP 116/58
[2025-04-05 03:48] VITALS: BP 134/72
--- NOTE | 2025-04-05 04:07 | NUR ---
SHIFT SUMMARY ADMITTED FOR HYPOTENSION, SLURRED SPEECH/FACIAL DROOP. FULL CODE. AWAITING PLACEMENT. IV FLUIDS INFUSING ORDERED. ANTIB RX ARE SCHEDULED. SHE WILL FOLLOW UP OUTPT FOR ZIO PATCH. CARDIOLOGY CONSULT IS DR. RANKIN. SHE IS A&O XSELF, ON 2 LPM O2 (3 LPM IS BASELINE), AND BEDBOUND. SHE DOES SUNDOWN. THIS SHIFT SHE WAS PLEASANTLY CONFUSED. REGULAR/EASY TO CHEW DIET. ACHS CBG'S - LOW SS. SHE IS INCONTINENT, PUREWICK IN PLACE. TELEMETRY - NSR @ 70 BPM W/BBB, 1ST DEG HB, AND 2ND DEGREE MOBITZ 1. NO NEW CONCERNS THIS SHIFT.
[2025-04-05 07:15] VITALS: BP 138/58
[2025-04-05] MEDS ORDERED: Midazolam HCL 1 MG/ML 5MLVIAL IM PRN (10:30)
--- NOTE | 2025-04-05 15:32 | NUR ---
DISCHARGE SUMMARY: PT DISCHARGED AT 1520 THIS AFTERNOON. ALL BELONGINGS PACKED AND TAKEN WITH PATIENT. PT LEFT VIA W/C WITH [facility] ON OXYGEN . UPON DISCHARGE IV AND TELEMETRY WAS REMOVED. DISCHARGE PAPERWORK DISCUSSED WITH PT AND SENT WITH HER. PRIOR TO D/C PT DENIED CHEST PAIN AND/OR SHORTNESS OF BREATH.
== END 2025-04-05 15:20 | disposition home or self-care (01) | DRG 314 ==
LOC: ER 18:41 → ICUE 21:19 → MEDS 21:19 → ICUE 04-01 01:42 → MEDS 04-02 01:42
PROVIDERS: Nurse Practitioner Acute Care; Student in an Organized Health Care Education/Training Program; ADMIT Student in an Organized Health Care Education/Training Program
DX: I95.89 Other hypotension (principal); G92.8 Other toxic encephalopathy; G81.93 Hemiplegia, unspecified affecting right nondominant side; F03.B11 Unspecified dementia, moderate, with agitation; Z68.44 Body mass index [BMI] 60.0-69.9, adult; N39.0 Urinary tract infection, site not specified; I95.2 Hypotension due to drugs; G40.909 Epilepsy, unspecified, not intractable, without status epilepticus; T40.3X5A Adverse effect of methadone, initial encounter; I10 Essential (primary) hypertension; K21.9 Gastro-esophageal reflux disease without esophagitis; E05.80 Other thyrotoxicosis without thyrotoxic crisis or storm; I44.1 Atrioventricular block, second degree; E11.9 Type 2 diabetes mellitus without complications; F03.B0 Unspecified dementia, moderate, without behavioral disturbance, psychotic disturbance, mood disturbance, and anxiety; M32.9 Systemic lupus erythematosus, unspecified; M10.9 Gout, unspecified; E78.5 Hyperlipidemia, unspecified; E89.0 Postprocedural hypothyroidism; E66.01 Morbid (severe) obesity due to excess calories; Z74.01 Bed confinement status; F11.90 Opioid use, unspecified, uncomplicated; Z78.1 Physical restraint status; Z88.0 Allergy status to penicillin; Z88.2 Allergy status to sulfonamides; Z88.8 Allergy status to other drugs, medicaments and biological substances; Z79.82 Long term (current) use of aspirin; Z79.890 Hormone replacement therapy; Z79.899 Other long term (current) drug therapy; Z79.84 Long term (current) use of oral hypoglycemic drugs; Z90.49 Acquired absence of other specified parts of digestive tract; Z90.710 Acquired absence of both cervix and uterus; Z98.890 Other specified postprocedural states
CPT/HCPCS: 36415; 70450; 70496; 70498; 71045; 80048; 80053; 80069; 81001; 82533; 82947; 83605; 83690; 83735; 84439; 84443; 84481; 84484; 85025; 87040; 87086; 93005; 93010; 93246; 93306; 93926; 93971; 94760; 94762; 96374-59; 96375-59; 97110; 97112; 97129; 97130; 97161; 97166; 97530; 97535; 99285-25; A9270; J0456; J0696; J1200; J1650; J2470; J3360; J7030; J7050; J7060; Q9967

== ENCOUNTER → 2025-08-28 | Outpatient (CLI) | payer OTHER | LOC: LAB 16:17 → LAB SHORT 16:17 | DX: N39.0 Urinary tract infection, site not specified (principal) | CPT/HCPCS: 87077; 87086; 87186 ==